=== PATIENT | male | born 1980 | race Asian ===

== ENCOUNTER 2023-05-07 14:24 | Emergency (ER) | payer OTHER, SELFPAY ==
[2023-05-07 14:30] VITALS: BP 157/106
--- NOTE | 2023-05-07 15:42 | ED.GENMED ---
History of Present Illness
General
Chief Complaint: Eye Problems
Source: patient
Exam Limitations: none
Time Seen by Provider: 05/07/23 15:01
Nursing documentation reviewed up to this point in time: agreed with
Travel History
Have you had any contact with someone who has COVID-19?: No
Do you have any symptoms of coronavirus? Fever > 100 degrees, chills, cough, shortness of breath, sore throat, loss of taste or smell, muscle aches, or headache?: No
History of Present Illness
History of Present Illness:
42-year-old male with medical history of hypertension hyperlipidemia presenting to the emergency department after being sent in by his primary care doctor with concerns of irritation of his eyes bilaterally. Proceeded by URI over the past week some
mild irritation to his eyes bilaterally with slight redness. Denies any changes in vision denies significant pain has noticed some cloudy discharge in the morning. Denies any chest pain shortness of breath nausea vomiting denies any fevers denies
any headache.
Past History
Past History
ED Past Medical History: HTN
ED Past Surgical History: None and Other (hernia)
Social History
Tobacco: Non-smoker
Drug: Marijuana (medical)
Personal:
Review of Systems
Review of Systems
Allergies reviewed?: Yes
All Other Systems: ROS reviewed and negative except as documented in HPI and ROS
Phy Exam
Physical Exam
Physical Exam:
GENERAL: Alert , in no apparent distress
EYE: pupils equal and reactive, slight injection to the conjunctiva bilaterally, ciliary sparing normal extraocular movements without obvious discomfort patient has full range of motion's of the, normal pupil reaction no double vision no relative
afferent pupillary defect no neurologic symptoms.
NECK: Supple, no significant adenopathy.
ENT: o/p clr, mmm.
CARDIAC: Regular rate and rhythm .
LUNGS: Clear breath sounds bilaterally, no acute respiratory distress, no wheezes/rales/rhonchi
ABDOMEN: Soft, without focal tenderness, no r/g, no cvat
NEUROLOGICAL: Alert and oriented, no focal neuro deficits
SKIN: Warm and dry, skin intact.
MUSCULOSKELETAL: No edema, well perfused.
PSYCH: Normal and appropriate interaction.
Course
Orders/Labs/Results
Orders:
Orders
05/07/23 15:41
Visual Acuity- Treatment ONCE
Amoxicillin 875 mg/Clav 125 mg [Augmentin 875 mg/125 mg] 1 tablet PO NOW STA
05/07/23 15:42
Erythromycin (Ilotycin) [Erythromycin 0.5% Ophthalmic Ointment] See Dose Instructions OPHTH NOW STA
Vital Signs
Initial and Last Documented VS:
Initial Vital Signs
Temp Pulse Resp BP Pulse Ox
98.5 F 85 18 157/106 98
05/07/23 14:30 05/07/23 14:30 05/07/23 14:30 05/07/23 14:30 05/07/23 14:30
Last Documented Vital Signs
Temp Pulse Resp BP Pulse Ox
98.5 F 85 18 157/106 98
05/07/23 14:30 05/07/23 14:30 05/07/23 14:30 05/07/23 14:30 05/07/23 14:30
MDM/Problems Addressed
MDM/Problems Addressed:
42-year-old male presenting to the emergency department today with concerns of redness and irritation to the eyes bilaterally had recent URI. Upon arrival here vital signs are normal afebrile no significant swelling to the eyes but does have some
injection to the conjunctiva bilaterally. Normal pupil reaction and normal extra movements. Normal vision. Patient does not have symptoms consistent with orbital cellulitis at this time. This was discussed with the patient and we was decided not
to do CT scan at this time. He was started on antibiotics and will return for any worsening symptoms return precautions given.
*Critical Care Note
Total Time (30-74mins, 75-104mins- exclusive of procedures): Not Applicable
ED Attending Note
-
Portions of this chart may have been created with voice recognition software.� Occasional wrong word or��sound alike� substitutions may have occurred due to the inherent limitations of voice recognition software.
Discharge Plan
Departure
Patient Disposition: Home (Routine Discharge)
Date of Disposition: 05/07/23
Time of Disposition: 15:44
Patient with high blood pressure during this ER visit?: No
Condition: Good
Covid-19: Not Applicable
Discharge Problem:
Conjunctivitis
Instructions: Conjunctivitis ([place]) (DC)
Prescriptions:
New
Eye Allergy Relief 0.025-0.3 % drops
1 drp ophthalmic (eye) QID PRN (Reason: allergy symptoms) Qty: 15 0RF
amoxicillin-pot clavulanate 875-125 mg tablet
1 tab PO BID 5 Days Qty: 10 0RF
No Action
prednisone 10 MG tablet
10 mg PO .TAPER Qty: 30 0RF
Rx Instructions:
Take 40mg daily x3days, 30mg daily x3days,
20mg daily x3days, 10mg daily x3days.
amlodipine 5 MG tablet
5 mg PO DAILY Qty: 14 0RF
hydrocodone-acetaminophen 1 TABLET tablet
1 tab PO Q4HPRN PRN (Reason: pain) Qty: 14 0RF
Referrals:
Kenn Jeffery CRNP [Family Provider] -
Activity Restrictions/Additional Instructions:
You came to the emergency department today with concerns of irritation to your eyes bilaterally. This is likely consistent with conjunctivitis. Please use the Naphcon to help with symptoms and then use erythromycin ointment 2-3 times daily to help
with any secondary bacterial infection. Additionally can take Augmentin twice daily over the next 5 days for any possible surrounding infection. Return to the emergency department for any progressive symptoms.
Interventions
Interventions:
*Risk Screen - Suicide Last Done: 05/07/23 14:30
*General Assessment Last Done: 05/07/23 14:30
*Neglect/Abuse Screening Last Done: 05/07/23 14:30
ED- Fall Risk Assessment Last Done: 05/07/23 14:40
*ED COVID-19 Vaccine History Last Done: 05/07/23 14:30
[2023-05-07] MEDS: ERYTHROMYCIN 0.5% OPHTHALMIC OINTMENT 1 APPLIC OPHTH (15:53)
[2023-05-07] MEDS: AUGMENTIN 875 MG/125 MG 1 TABLET PO (15:53)
== END 2023-05-07 16:32 | disposition home or self-care (01) ==
LOC: EMR 14:24
PROVIDERS: EMERGENCY PHYSICIAN Emergency Medicine; FAMILY PHYSICIAN Nurse Practitioner Family
DX: H10.9 Unspecified conjunctivitis (principal); J06.9 Acute upper respiratory infection, unspecified; I10 Essential (primary) hypertension; E78.5 Hyperlipidemia, unspecified; F41.9 Anxiety disorder, unspecified
CPT/HCPCS: 99283

== ENCOUNTER 2024-04-03 02:52 | Inpatient (IN) | payer OTHER, SELFPAY ==
[2024-04-02 20:22] VITALS: BMI 29.3
[2024-04-02 20:24] VITALS: BP 146/91
[2024-04-02 20:46] LABS: Lactic Acid 2.3 mmol/L (0.7-2.0)
[2024-04-02 20:48] LABS: ALT (SGPT) 23 U/L (0-50); AST (SGOT) 32 U/L (17-59); Albumin 4.8 g/dl (3.5-5.0); Alkaline Phosphatase 98 U/L (38-126); Blood Urea Nitrogen 17 mg/dl (9-20); Calcium 9.7 mg/dl (8.4-10.2); Carbon Dioxide 22 mmol/L (22-30); Chloride 104 mmol/L (98-107); Glucose 132 mg/dl (70-99); Lipase 46 U/L (23-300); Potassium 3.3 mmol/L (3.5-5.1); Sodium 138 mmol/L (135-145); Total Bilirubin 0.5 mg/dl (0.2-1.3); Total Protein 7.7 g/dl (6.3-8.2); eGFR > 60.00
[2024-04-02 20:53] LABS: % Basophils 0.4 % (0-2); % Eosinophils 2.3 % (0-6); % Immature Granulocytes 0.4 % (0-0.5); % Lymphocytes 17.1 % (20.5-51.1); % Monocytes 4.4 % (1.7-9.3); % Neutrophils 75.4 % (42.2-75.2); Absolute Basophils 0.1 10^3/uL (0-0.2); Absolute Eosinophils 0.3 10^3/uL (0-0.7); Absolute Immature Granulocytes 0.1 10^3/uL (0-0.05); Absolute Lymphocytes 2.3 10^3/uL (1.2-3.4); Absolute Monocytes 0.6 10^3/uL (0.1-0.6); Absolute Neutrophils 10.1 10^3/uL (1.4-6.5); Hematocrit 42.5 % (39.0-52.0); Hemoglobin 14.2 g/dL (13.0-18.0); Mean Corp Hgb Conc. 33.4 g/dL (33.0-37.0); Mean Corpuscular Hgb 29.6 pg (27.0-31.0); Mean Corpuscular Volume 88.7 fL (80.0-94.0); Mean Platelet Volume 9.7 fL (7.4-10.4); Nucleated Red Blood Cells % 0 % (-); Platelet Count 238 10^3/uL (130-400); Red Blood Cell Count 4.79 10^6/uL (4.70-6.10); Red Cell Dist. Width 12.9 % (11.5-14.5); White Blood Cell Count 13.3 10^3/uL (4.8-10.8)
[2024-04-02 21:31] VITALS: BP 158/85
[2024-04-02 22:00] VITALS: BP 160/102
[2024-04-02] MEDS: MORPHINE SULFATE 4 MG IV (22:43)
[2024-04-02] MEDS: NSS 1000 IV (22:44)
[2024-04-02 23:00] VITALS: BP 158/84
--- NOTE | 2024-04-02 23:20 | ED.GENMED ---
History of Present Illness
General
Chief Complaint: Abdominal Pain
Time Seen by Provider: 04/02/24 22:37
History of Present Illness
History of Present Illness:
43-year-old male presenting to the emergency department for abdominal pain. Patient notes symptoms 2 days ago. Pain had been intermittent, however worsened tonight. Reports some nausea and vomiting. Denies changes in stool. Denies any history
of abdominal surgeries. Denies chest pain or difficulty breathing. Denies fever. Denies ever having pain like this in the past. Denies additional acute medical complaints
Past History
Past History
ED Past Medical History: HTN
ED Past Surgical History: None and Other (hernia)
Social History
Tobacco: Non-smoker
Drug: Marijuana (medical)
Personal:
Phy Exam
Physical Exam
Physical Exam:
General: Uncomfortable secondary to pain
HEENT: protecting airway
Neck: appears supple
CV: Normal heart rate, regular rhythm
Resp: No accessory muscle use, no increased work of breathing, lungs clear to auscultation bilaterally
Abd: Soft and non-distended, tender to left lower quadrant abdomen with voluntary guarding, no rebound
Extremities: No deformities, no swelling
Neuro: alert, no focal neurologic deficit
: deferred
Rectal: deferred
Psych: Normal affect
Skin: Intact
Course
Orders/Labs/Results
Orders:
Orders
04/02/24 20:27
Comprehensive Metabolic Panel Urgent
Lipase Urgent
04/02/24 20:28
Complete Blood Count/With Diff Urgent
Lactic Acid Urgent
04/02/24 22:37
0.9% Sodium Chloride 1000 ml [Nss] 1,000 ml IV BOLUS
Morphine Sulfate 4 mg IV NOW STA
04/02/24 22:48
Blood Culture Q30M
MIRTHA Source: Blood/Venous
Specimen Description:
Blood Culture Q30M
MIRTHA Source: Blood/Venous
Specimen Description:
04/02/24 22:54
CT Abd/pelvis W Iv Cont Urgent
Comment:
Reason For Exam: LLQ pain
04/02/24 23:44
HYDROmorphone [Dilaudid] 1 mg IV NOW STA
04/03/24 00:44
Ketorolac [Toradol] 30 mg IV NOW STA
04/03/24 00:50
Urinalysis Urgent
Date Specimen was Collected: 04/03/24
Time Specimen was Collected: 00:46
Urine Microscopic Urgent
Date Specimen was Collected: 04/03/24
Time Specimen was Collected: 00:46
04/03/24 01:51
CefTRIAXone [Rocephin] 1,000 mg IV NOW STA
Abnormal Lab Results
04/02/24 04/02/24 04/03/24
20: 20:28 00:50
WBC 13.3 H 10^3/uL
(4.8-10.8)
Abs Immat Gran (auto) 0.1 H 10^3/uL
(0-0.05)
Absolute Neuts (auto) 10.1 H 10^3/uL
(1.4-6.5)
Neutrophils % 75.4 H %
(42.2-75.2)
Lymphocytes % 17.1 L %
(20.5-51.1)
Potassium 3.3 L mmol/L
(3.5-5.1)
Glucose 132 H mg/dl
(70-99)
Lactic Acid 2.3 H mmol/L
(0.7-2.0)
Urine Ketones 2+ A
(Negative)
Urine Occult Blood 2+ A
(Negative)
Urine RBC 16-20 A /HPF
(0-2)
04/02/24 20:28
04/02/24 20:27
Vital Signs
Initial and Last Documented VS:
Initial Vital Signs
Temp Pulse Resp BP Pulse Ox
99.9 F 64 16 146/91 100
04/02/24 20:24 04/02/24 20:24 04/02/24 20:24 04/02/24 20:24 04/02/24 20:24
Last Documented Vital Signs
Temp Pulse Resp BP Pulse Ox
99.9 F 64 16 128/78 94
04/02/24 20:24 04/02/24 20:24 04/02/24 20:24 04/03/24 01:00 04/03/24 01:45
MDM/Problems Addressed
MDM/Problems Addressed:
43-year-old male presenting for 2 days of lower abdominal pain. Vital signs are significant for high blood pressure and low-grade fever.
On exam, patient is in no acute distress, however does appear uncomfortable secondary to pain. On abdominal exam, focal tenderness to the left lower quadrant with voluntary guarding, no rebound. Primary concern is for acute diverticulitis,
possibly perforated given level of discomfort. Patient had laboratory analysis prior to my assessment with leukocytosis and elevated lactic acid. Will start IV fluids and obtain blood cultures in the setting of developing septic process. Blood
pressure is within normal limits and lactate is less than 4, without concern for severe sepsis or septic shock. No indication for full cc per kilogram fluid bolus.
02:00 -CT shows a 2 mm stone with inflammatory changes and hydronephrosis. Urine without sign of infection, however in the setting of low-grade fever and leukocytosis with inflammatory changes on CAT scan, infected stone. Will start antibiotics.
Urology made aware. Plan for admission
*Critical Care Note
Total Time (30-74mins, 75-104mins- exclusive of procedures): Not Applicable
ED Attending Note
-
Portions of this chart may have been created with voice recognition software.� Occasional wrong word or��sound alike� substitutions may have occurred due to the inherent limitations of voice recognition software.
Discharge Plan
Departure
Prescriptions:
No Action
prednisone 10 MG tablet
10 mg PO .TAPER Qty: 30 0RF
Rx Instructions:
Take 40mg daily x3days, 30mg daily x3days,
20mg daily x3days, 10mg daily x3days.
amlodipine 5 MG tablet
5 mg PO DAILY Qty: 14 0RF
hydrocodone-acetaminophen 1 TABLET tablet
1 tab PO Q4HPRN PRN (Reason: pain) Qty: 14 0RF
Eye Allergy Relief 0.025-0.3 % drops
1 drp ophthalmic (eye) QID PRN (Reason: allergy symptoms) Qty: 15 0RF
amoxicillin-pot clavulanate 875-125 mg tablet
1 tab PO BID 5 Days Qty: 10 0RF
Referrals:
Kenn Jeffery CRNP [Family Provider] -
Interventions
Interventions:
*Risk Screen - Suicide Last Done: 04/02/24 20:24
*General Assessment Last Done: 04/02/24 20:24
*Neglect/Abuse Screening Last Done: 04/02/24 20:24
*ED COVID-19 Vaccine History Last Done: 04/02/24 21:43
CM-Ekbvkj-Yistmvmila Assessment Last Done: 04/02/24 22:03
Discharge Date and Time
Print Language: BERMUDIAN
[2024-04-02] MEDS: DILAUDID 1 MG IV (23:48)
[2024-04-03] VITALS (10 sets, daily range): BP systolic 102–150; BP diastolic 72–97; BMI 29.5
[2024-04-03] MEDS: TORADOL 30 MG IV (00:49)
[2024-04-03 00:59] LABS: Urine Albumin Negative (Neg - Trace); Urine Bilirubin Negative (Negative); Urine Character Clear (Clear); Urine Color Yellow; Urine Glucose Negative (Negative); Urine Ketone 2+ (Negative); Urine Leukocyte Negative (Negative); Urine Nitrite Negative (Negative); Urine Occult Blood 2+ (Negative); Urine Specific Gravity 1.015 (<1.030); Urine Urobilinogen Negative (Neg - 1+)
[2024-04-03 01:09] LABS: Urine Red Blood Cell 16-20 /HPF (0-2); Urine White Cell 0-2 /HPF (0-5)
[2024-04-03] MEDS: ROCEPHIN 1000 MG IV (02:06)
--- NOTE | 2024-04-03 02:41 | HPS.HSE ---
Family Physician
-
Family Physician: GAVINO Colby
Chief Complaint
-
Left-sided abdominal/flank pain
History of Present Illness
This is a 43-year-old with past medical history of hyperlipidemia, hypertension and depression who presents to the emergency department with left-sided abdominal and flank pain.
Patient reports onset of pain started yesterday. Initially had an episode of a sharp stabbing sensation on the left flank radiating to the front and associated with nausea. This lasted a few minutes and then resolved. Then later on this evening
the patient had recurrence of the pain this time it was persistent and had a waxing and waning character. He reported 1 episode of vomiting. Denies any fevers. Denies any hematuria, dysuria, or groin pain.
Patient denies any prior history of kidney stones. Denies any family history. Denies any history of gallbladder or liver disease.
In the emergency department he was afebrile, blood pressure was 128/80 with a pulse of 64 satting 16%. Temperature was 99.9. He had a lactic acid of 2.3. CBC showed a white count of 13 but otherwise unremarkable. Electrolytes were stable with
potassium of 3.3, creatinine was 1.3. UA was positive for blood but negative for leukocyte esterase WBCs or nitrites. No bacteria.
Medical History
Past Medical History
Past Medical History: Reports HTN and Hypercholesterolemia
Past Surgical History: Reports Other (Septoplasty)
Social History
Tobacco: Non-smoker
Alcohol: Occasional
Drug: None
Personal:
Living: With Family
Employment: Employed
Family History
Family History: Not pertinent
Allergies / Home Medications
Allergies reflects when Allergies were last updated in [facility].
Home Medications with original date entered in [facility]
Allergy/Medication List:
Allergies
Allergy/AdvReac Type Severity Reaction Status Date / Time
No Known Allergies Allergy Verified 04/02/24 20:27
Home Medications
amlodipine 5 mg tablet 5 mg PO DAILY #14 tabs 07/15/20
hydrocodone 5 mg-acetaminophen 325 mg tablet 1 tab PO Q4HPRN PRN pain #14 tabs 07/15/20
prednisone 10 mg tablet 10 mg PO .TAPER #30 tabs 07/15/20
amoxicillin 875 mg-potassium clavulanate 125 mg tablet 1 tab PO BID 5 days #10 tabs 05/07/23
naphazoline 0.025 %-pheniramine 0.3 % eye drops (Eye Allergy Relief (naphazoline-pheniramine)) 1 drp ophthalmic (eye) QID PRN allergy symptoms #15 mL 05/07/23
Review of Systems
-
Constitutional: Reports No Symptoms
EENT: Reports No Symptoms
Respiratory: Reports No Symptoms
Cardiac: Reports No Symptoms
Abdomen/GI: Reports Abdominal Pain
: Reports Flank Pain
Musculoskeletal: Reports No Symptoms
Skin: Reports No Symptoms
Neurological: Reports No Symptoms
Endocrine: Reports No Symptoms
Hematologic/Lymphatic: Reports No Symptoms
Psych: Reports No Symptoms
Physical Exam
Vital Signs
Vital Signs
Temp Pulse Resp BP Pulse Ox
99.9 F 64 16 128/78 94
04/02/24 20:24 04/02/24 20:24 04/02/24 20:24 04/03/24 01:00 04/03/24 01:45
Physical Exam
General: Well Developed, Well Nourished, Conversant and Pain
HEENT: NormoCephalic, Anicteric, Moist mucous membranes and Atraumatic
Respiratory: Clear
Cardiac: S1/S2 and Regular Rhythm
Breast: Deferred by me
GI: Soft, Non Tender, Non Distended and Normal Bowel Sounds
Rectal: Deferred by Provider
Genito-urinary: Costovertebral angle tend
Musculoskeletal: No Clubbing, No Cyanosis and No Edema
Neuro: AO x 3 and Nonfocal/grossly intact
Hematologic/Lymphatic: No Lymphadenopathy
Psych: Intact Judgment/Insight
Laboratory Results
-
04/02/24 20:
04/02/24 20:
Laboratory Results
Lactic Acid 2.3 mmol/L (0.7-2.0) H 04/02/24 20:
Total Bilirubin 0.5 mg/dl (0.2-1.3) 04/02/24 20:
AST 32 U/L (17-59) 04/02/24 20:
ALT 23 U/L (0-50) 04/02/24 20:
Alkaline Phosphatase 98 U/L (38-126) 04/02/24 20:
Lipase 46 U/L (23-300) 04/02/24 20:
Data Reviewed
-
CT Scan: Report Reviewed by me
Lab Data: Labs Reviewed by me
Old Records: Reviewed
Impression/Plan
-
IMPRESSION:
43-year-old with no prior history of kidney stones presenting with left-sided flank pain found to have a 2 mm obstructing distal left ureteral calculus just above the UVJ with mild hydroureteronephrosis. Delayed nephrogram absent contrast excretion
suggestive of ongoing obstruction. No fevers. He does have leukocytosis. UA is negative for nitrites leukocyte esterase WBCs or bacteria.
PLAN:
Obstructing kidney stone - Renal function is preserved with creatinine of 1.2 but unknown baseline. Mild hydro. No signs of acute infection.
- admit to med/surg
- npo
- tamsulosin, iv fluids
- pain control with toradol, dilaudid and antiemetics
- strain urine
- urology consulted and aware, possible OR in am
- will continue home medications statin, irbesatan and paroxetine
DVT PPX - SCDs
Code status - full code
[2024-04-03] MEDS: FLOMAX 0.4 MG PO (03:43)
[2024-04-03] MEDS: D5/0.45%NACL 1000 IV ×2 (05:34→16:04)
[2024-04-03 07:40] LABS: Hematocrit 38.8 % (39.0-52.0); Hemoglobin 13.2 g/dL (13.0-18.0); Mean Corpuscular Hgb 30.3 pg (27.0-31.0); Mean Corpuscular Volume 89.2 fL (80.0-94.0); Mean Platelet Volume 9.9 fL (7.4-10.4); Platelet Count 228 10^3/uL (130-400); Red Blood Cell Count 4.35 10^6/uL (4.70-6.10); Red Cell Dist. Width 12.8 % (11.5-14.5); White Blood Cell Count 9.4 10^3/uL (4.8-10.8)
--- NOTE | 2024-04-03 07:49 | W.PN.HOSP.TC ---
Today's Communication/Plan
-
see bold
Assessment / Plan
Assessment / Plan
43-year-old with no prior history of kidney stones presenting with left-sided flank pain found to have a 2 mm obstructing distal left ureteral calculus just above the UVJ with mild hydroureteronephrosis. Delayed nephrogram absent contrast excretion
suggestive of ongoing obstruction. No fevers. He does have leukocytosis. UA is negative for nitrites leukocyte esterase WBCs or bacteria.
#Left ureterovesical junction ureterolithiasis (1mm) associated with mild left hydronephrosis
Appreciate urology input, continue Flomax, monitor overnight
Follow-up blood cultures
#Acute kidney injury
Creatinine 1.7 today, was normal yesterday
Discontinue Toradol
Continue IV fluids, trend creatinine
#Essential hypertension
Hold \\irbesartan due to Ysabel
#Hyperlipidemia
Continue statin
#Anxiety/depression
Continue SSRI
DVT prophylaxis�SCDs
Full code
Physical Exam
General: No acute distress
HEENT: Normocephalic, Atraumatic, EOMI, MMM
Respiratory: Clear to Auscultation bilaterally
Cardiac: Normal S1/S2, Regular Rate and Rhythm
GI: Soft, Nontender, Nondistended, Normal Bowel Sounds
Extremities: No Clubbing, Cyanosis, or Edema
Neuro: Nonfocal/Grossly Intact
Psych: Calm, Cooperative
Derm: No Visible lesions
Anticipated Discharge: Within 24 hours
Subjective/Interval History
-
Date of Service: April 03, 2024
Objective Data
-
Labs:
Laboratory Results
04/02/24 04/02/24 04/03/24
20:27 20:28 06:38
WBC 13.3 H 9.4
Hgb 14.2 13.2
Hct 42.5 38.8 L
Plt Count 238 228
Sodium 138 Pending
Potassium 3.3 L Pending
Chloride 104 Pending
Carbon Dioxide 22 Pending
BUN 17 Pending
Creatinine 1.3 Pending
Glucose 132 H Pending
Calcium 9.7 Pending
Total Bilirubin 0.5
AST 32
ALT 23
Alkaline Phosphatase 98
Vital Signs:
Vital Signs
Temp Pulse Resp BP Pulse Ox
98.0 F 86 18 140/87 99
04/03/24 07:10 04/03/24 07:10 04/03/24 07:10 04/03/24 07:10 04/03/24 07:10
[2024-04-03 08:06] LABS: Blood Urea Nitrogen 17 mg/dl (9-20); Calcium 8.7 mg/dl (8.4-10.2); Carbon Dioxide 25 mmol/L (22-30); Chloride 103 mmol/L (98-107); Estimated Creatinine Clearance 56 ml/min; Glucose 130 mg/dl (70-99); Sodium 139 mmol/L (135-145)
[2024-04-03] MEDS: AVAPRO 300 MG PO (08:47)
[2024-04-03] MEDS: PAXIL 20 MG PO (08:47)
[2024-04-03] MEDS: D5/0.9% SODIUM CHLORIDE 1000 IV ×2 (10:08→14:08)
--- NOTE | 2024-04-03 10:26 | W.PN.URO.CBU ---
Today's Communication / Plan
-
rehydrate check creatininw and blood cxs no discharge until blood cxs are at least prelim. done
Assessment / Plan
-
pt with uvj stone now asx but creatinine up 1.7 but afebrile and wbc down Too early to report but so far blood cxs neg Will rehydrate and check creatinine can d/c to home if creatinine improved with hydrationbut must check blood cxs
before d/cOn other hand if temp up or sxs may need stent or at least repeat ct scan
Diagnosis
-
Date of Service: April 03, 2024
-
Patient Diagnosis:left uvj stone fever to 100 now afebrile asx possibly passed 1 - 2 m,m stone at uvj
Post Op Day:
Subjective
-
feels well asx
Objective
-
Vital Signs
Temp Pulse Resp BP Pulse Ox
98.0 F 95 18 140/83 97
04/03/24 07:10 04/03/24 08:47 04/03/24 07:10 04/03/24 08:47 04/03/24 08:22
Laboratory Results
04/03/24 06:38
Review of Systems
-
Constitutional: No Symptoms
: No Symptoms
Physical Exam
-
General - well developed, well nourished, no acute distress non toxic
Chest - clear bilaterally
Abdomen - soft, non-tender, positive bowel sounds, no CVAT, no incisional pain or distention
Genitalia - normal
Rectal - normal
Skin - warm & dry with no rash
Neuro - AOx3, no motor deficits
Extremities - no clubbing, no cyanosis, no edema
Incision - clean, dry
Dressing - clean, dry, intact
Care Review
Data Reviewed
Discussed with: Nursing and Family
CT Scan: Image Pers Reviewed
[2024-04-03 15:20] LABS: ALT (SGPT) 19 U/L (0-50); AST (SGOT) 26 U/L (17-59); Albumin 3.9 g/dl (3.5-5.0); Alkaline Phosphatase 71 U/L (38-126); Blood Urea Nitrogen 16 mg/dl (9-20); Calcium 8.3 mg/dl (8.4-10.2); Carbon Dioxide 24 mmol/L (22-30); Chloride 107 mmol/L (98-107); Estimated Creatinine Clearance 63 ml/min; Glucose 123 mg/dl (70-99); Potassium 3.6 mmol/L (3.5-5.1); Sodium 140 mmol/L (135-145); Total Bilirubin 0.6 mg/dl (0.2-1.3); Total Protein 6.5 g/dl (6.3-8.2); eGFR 59.61
--- NOTE | 2024-04-03 15:45 | CM ---
CM met with pt at bedside.
Pt ambulating independently in room. Ind with amb/adl's uses no AD. Owns a CPAP but does not use. Not sure of name of DME supplier.
Lives with family in a condo. + [employer]. + works as an IT developer.
PCP is Johan Jeffery and pharmacy is [facility].
Does have health insurance through [employer].
No HC or SNF history.
Discharge dispo home no needs. CM to follow and watch for needs.
[2024-04-03] MEDS: CRESTOR 40 MG PO (17:06)
[2024-04-03] MEDS: TYLENOL 650 MG PO (23:12)
[2024-04-04] MEDS: D5/0.45%NACL 1000 IV (02:55)
[2024-04-04 06:20] LABS: Blood Urea Nitrogen 14 mg/dl (9-20); Calcium 8.3 mg/dl (8.4-10.2); Carbon Dioxide 27 mmol/L (22-30); Chloride 104 mmol/L (98-107); Estimated Creatinine Clearance 73 ml/min; Glucose 106 mg/dl (70-99); Potassium 3.5 mmol/L (3.5-5.1); Sodium 139 mmol/L (135-145); eGFR > 60.00
[2024-04-04 07:30] VITALS: BP 133/71
[2024-04-04] MEDS: PAXIL 20 MG PO (08:26)
[2024-04-04] MEDS: FLOMAX 0.4 MG PO (08:26)
--- NOTE | 2024-04-04 08:40 | W.PN.HOSP.TC ---
Today's Communication/Plan
-
Cleared by urology for discharge today
Assessment / Plan
Assessment / Plan
43-year-old with no prior history of kidney stones presenting with left-sided flank pain found to have a 2 mm obstructing distal left ureteral calculus just above the UVJ with mild hydroureteronephrosis. Delayed nephrogram absent contrast excretion
suggestive of ongoing obstruction. No fevers. He does have leukocytosis. UA is negative for nitrites leukocyte esterase WBCs or bacteria.
#Left ureterovesical junction ureterolithiasis (1mm) associated with mild left hydronephrosis
Appreciate urology input, stone has likely passed
Cleared by urology for discharge today, continue Flomax upon discharge, follow-up in the office as needed
#Acute kidney injury
Creatinine 1.7, was normal
Discontinued Toradol
BRETT resolved on IV fluids, creatinine now normal
#Essential hypertension
Recommend patient take amlodipine 5 mg daily upon discharge
#Hyperlipidemia
Continue statin
#Anxiety/depression
Continue SSRI
DVT prophylaxis�SCDs
Full code
Physical Exam
General: No acute distress
HEENT: Normocephalic, Atraumatic, EOMI, MMM
Respiratory: Clear to Auscultation bilaterally
Cardiac: Normal S1/S2, Regular Rate and Rhythm
GI: Soft, Nontender, Nondistended, Normal Bowel Sounds
Extremities: No Clubbing, Cyanosis, or Edema
Neuro: Nonfocal/Grossly Intact
Psych: Calm, Cooperative
Derm: No Visible lesions
Anticipated Discharge: Today
Subjective/Interval History
-
Date of Service: April 04, 2024
Patient denies abdominal pain, denies flank pain. No nausea, no vomiting. No fever.
Objective Data
-
Labs:
Laboratory Results
04/04/24
04:12
Sodium 139
Potassium 3.5
Chloride 104
Carbon Dioxide 27
BUN 14
Creatinine 1.3
Glucose 106 H
Calcium 8.3 L
Vital Signs:
Vital Signs
Temp Pulse Resp BP Pulse Ox
97.8 F 66 18 133/71 97
04/04/24 07:30 04/04/24 07:30 04/04/24 07:30 04/04/24 07:30 04/04/24 07:30
I&O
04/03/24 04/04/24 04/05/24
06:59 06:59 06:59
Intake Total 4600 / 4600
Output Total 1750 / 1750
Balance 2850 / 2850
--- NOTE | 2024-04-04 09:35 | W.PN.URO.CBU ---
Today's Communication / Plan
-
home if ok with hoaspitalist
Assessment / Plan
-
home with flomax
Diagnosis
-
Date of Service: April 04, 2024
-
Patient Diagnosis:
Post Op Day:
Patient Diagnosis:left uvj stone fever to 100 now afebrile asx possibly passed 1 - 2 m,m stone at uvj
Post Op Day:
Subjective
-
feels baseliune perhaps 1/ 10 discomfort no fever chills
Objective
-
Vital Signs
Temp Pulse Resp BP Pulse Ox
97.8 F 66 18 133/71 99
04/04/24 07:30 04/04/24 07:30 04/04/24 07:30 04/04/24 07:30 04/04/24 09:06
Intake and Output
04/03/24 04/04/24 04/05/24
06:59 06:59 06:59
Intake Total 4600 / 4600
Output Total 1750 / 1750
Balance 2850 / 2850
Intake:
Oral fluids 1300 / 1300
IV fluids (Total) 3300 / 3300
Output:
Urine, Voided 1750 / 1750
Other:
Number of approximated MODERATE 3
amounts of urine
Laboratory Results
04/03/24 06:38
04/04/24 04:12
Review of Systems
-
: No Symptoms
Physical Exam
-
General - well developed, well nourished, no acute distress
Chest - clear bilaterally
Abdomen - soft, non-tender, positive bowel sounds, no CVAT, no incisional pain or distention
Genitalia - normal
Rectal - normal
Skin - warm & dry with no rash
Neuro - AOx3, no motor deficits
Extremities - no clubbing, no cyanosis, no edema
Incision - clean, dry
Dressing - clean, dry, intact
Care Review
Data Reviewed
Discussed with: Nursing
--- NOTE | 2024-04-04 09:36 | W.PN.URO.CBU ---
Today's Communication / Plan
-
home if ok with hospitalist
Assessment / Plan
-
blood cxs neg creatinine at [facility] home today with flomax
Diagnosis
-
Date of Service: April 04, 2024
-
Patient Diagnosis:
Post Op Day:
Patient Diagnosis:
Post Op Day:
Patient Diagnosis:left uvj stone fever to 100 now afebrile asx possibly passed 1 - 2 m,m stone at uvj
Post Op Day:
Subjective
-
baseline
Objective
-
Vital Signs
Temp Pulse Resp BP Pulse Ox
97.8 F 66 18 133/71 99
04/04/24 07:30 04/04/24 07:30 04/04/24 07:30 04/04/24 07:30 04/04/24 09:06
Intake and Output
04/03/24 04/04/24 04/05/24
06:59 06:59 06:59
Intake Total 4600 / 4600
Output Total 1750 / 1750
Balance 2850 / 2850
Intake:
Oral fluids 1300 / 1300
IV fluids (Total) 3300 / 3300
Output:
Urine, Voided 1750 / 1750
Other:
Number of approximated MODERATE 3
amounts of urine
Laboratory Results
04/03/24 06:38
04/04/24 04:12
Review of Systems
-
: No Symptoms
Physical Exam
-
General - well developed, well nourished, no acute distress
Chest - clear bilaterally
Abdomen - soft, non-tender, positive bowel sounds, no CVAT, no incisional pain or distention
Genitalia - normal
Rectal - normal
Skin - warm & dry with no rash
Neuro - AOx3, no motor deficits
Extremities - no clubbing, no cyanosis, no edema
Incision - clean, dry
Dressing - clean, dry, intact
Counseling
-
ok for discharge from gu point of view
Care Review
Data Reviewed
Discussed with: Nursing
CT Scan: Image Pers Reviewed
--- NOTE | 2024-04-04 10:46 | CM ---
Discharged to home; no needs; per nursing, family provided transport
--- NOTE | 2024-04-04 17:34 | W.DCSUMMARY ---
Discharge Summary
Discharge Data
Date of Admission: 04/03/24
Date of Discharge: 04/04/24
-
Pending Results: No
Hospital Course
Discharge diagnosis:
Left ureterovesical junction ureterolithiasis associated with mild left hydronephrosis
Acute kidney injury
Essential hypertension
Anxiety/depression
Hepatic cyst
Consults: Urology
CT abdomen and pelvis:
1). There is a 1 mm partially obstructing calculus at the left ureterovesical junction associated with mild left hydronephrosis, mild left hydroureter and mild left perinephric edema
2). There is a 2.8 cm hepatic cyst
Hospital course:
43-year-old male with a past medical history of hypertension, and anxiety/depression was admitted for left UVJ ureterolithiasis with mild left hydronephrosis. Patient was seen in conjunction with neurology. He was treated with IV fluids and
Flomax. His ureteral stone passed without surgical intervention.
Patient was found to have acute kidney injury, his creatinine bumped to 1.7. Toradol was held. His creatinine normalized with IV fluids.
Patient has a history of essential hypertension. It is recommended that he take amlodipine 5 mg daily.
Patient is medically stable for discharge. He needs to follow-up with his primary care doctor in 1 week, and urology in the office as needed.
Disposition: Home self-care
Discharge planning: Required 36 minutes
Discharge Plan
-
Patient Disposition: Home (Routine Discharge)
Discharge Diagnosis/Procedures: Left ureterovesical junction ureterolithiasis (1mm) associated with mild left hydronephrosis, acute kidney injury, hypertension
Condition: Good
Diet: Regular
Activity: As tolerated
Driving Restrictions: As prior to admission
Activity Restrictions/Additional Instructions:
Your blood pressure in the hospital was elevated.
It is recommended you take a blood pressure medication such as amlodipine 5 mg daily.
Follow-up with your primary care doctor in 1 week, urology in the office as needed.
Referrals:
Kenn Jeffery CRNP [Family Provider] - in one week
Ankur Almendarez MD [Active] - (if questions dr [email or web address] [phone] uro,logy)
Prescriptions:
New
tamsulosin 0.4 mg Capsule
0.4 mg PO DAILY Qty: 30 0RF
paroxetine HCl 20 mg Tablet
20 mg PO DAILY Qty: 30 0RF
Continued
amlodipine 5 MG tablet
5 mg PO DAILY Qty: 30 0RF
Rx Instructions:
not taken in a year
Discontinued
prednisone 10 MG tablet
10 mg PO .TAPER Qty: 30 0RF
Rx Instructions:
Take 40mg daily x3days, 30mg daily x3days,
20mg daily x3days, 10mg daily x3days.
hydrocodone-acetaminophen 1 TABLET tablet
1 tab PO Q4HPRN PRN (Reason: pain) Qty: 14 0RF
Eye Allergy Relief 0.025-0.3 % drops
1 drp ophthalmic (eye) QID PRN (Reason: allergy symptoms) Qty: 15 0RF
amoxicillin-pot clavulanate 875-125 mg tablet
1 tab PO BID 5 Days Qty: 10 0RF
Discharge Orders:
Discharge Patient (As Directed); Ordered 04/04/24
Ordered By: David Pathak
Discharge Date and Time
Discharge Date/Time: 04/04/24 10:39
Print Language: DANISH
== END 2024-04-04 10:39 | disposition home or self-care (01) | DRG 684 ==
LOC: 2 SOUTH 02:52
PROVIDERS: Emergency Medicine; ADMITTING PHYSICIAN Internal Medicine; ATTENDING PHYSICIAN Family Medicine; CONSULT PHYSICIAN Specialist; EMERGENCY PHYSICIAN Student in an Organized Health Care Education/Training Program; FAMILY PHYSICIAN Nurse Practitioner Family
DX: N17.9 Acute kidney failure, unspecified (principal); N13.2 Hydronephrosis with renal and ureteral calculous obstruction; I10 Essential (primary) hypertension; E78.00 Pure hypercholesterolemia, unspecified; F41.9 Anxiety disorder, unspecified; F32.A Depression, unspecified; K76.89 Other specified diseases of liver
CPT/HCPCS: 74177; 80048; 80053; 81003; 81015; 83605; 83690; 85025; 85027; 87040; 96374; 96375; 99285; Q9967